=== PATIENT | female | born 1990 | race Caucasian/White ===

== ENCOUNTER 2022-05-04 04:00 | Inpatient (IN) | payer OTHER ==
[~2022-05-04] VITALS: Ht 157.5 cm; Wt 96.6 kg
[2022-05-04] MEDS ORDERED: TERBUTALINE SULFATE 1 MG/ML VIAL SUBCUT ONE (04:15)
[2022-05-04] MEDS ORDERED: NALBUPHINE HCL 10 MG/ML AMP IM PRN (04:15)
[2022-05-04] MEDS ORDERED: NALBUPHINE HCL 10 MG/ML AMP IVP PRN (04:15)
[2022-05-04] MEDS ORDERED: OXYTOCIN/0.9 % SODIUM CHLORIDE 1,000 ML IV SCH ×2 (04:15→23:15)
[2022-05-04 04:47] VITALS: BP_SYST 103
[2022-05-04] MEDS: LR 1,000 ML IV SCH ×3 (05:18→18:00)
[2022-05-04 06:55] LABS: BASOPHILS % (AUTO) 0.3 % (0.0-2.0); EOSINOPHILS # (AUTO) 0.1 K/uL (0.0-0.4); EOSINOPHILS % (AUTO) 1.7 % (0.0-4.0); HEMATOCRIT 33.1 % (36-48); HEMOGLOBIN 11.5 g/dL (12.0-16.0); LYMPHOCYTES % (AUTO) 26.2 % (20.5-51.5); MEAN CORPUSCULAR HEMOGLOBIN 30 pg (27-31); MEAN CORPUSCULAR HGB CONC 35 % (32-36); MEAN CORPUSCULAR VOLUME 87 fL (79.0-98.0); MONOCYTES # (AUTO) 0.6 K/uL (0.0-1.0); MONOCYTES % (AUTO) 8.4 % (1.7-9.3); NEUTROPHILS # (AUTO) 4.9 K/uL (1.8-7.7); NEUTROPHILS % (AUTO) 63.4 % (40.0-70.0); PLATELET COUNT (AUTO) 188 K/uL (130-430); RED BLOOD CELL COUNT(AUTO) 3.81 MIL/uL (4.2-6.2); WHITE BLOOD COUNT (AUTO) 7.8 K/uL (4.8-10.8)
[2022-05-04] MEDS ORDERED: fentaNYL CITRATE/PF 100 MCG/2 ML AMP ONE ×3 (13:39→22:01)
[2022-05-04] MEDS ORDERED: ROPIVACAINE HCL/PF 0.2% 200 ML ONE (13:40)
[2022-05-04] MEDS ORDERED: TEMAZEPAM 15 MG CAPSULE PO PRN (21:00)
[2022-05-04] MEDS ORDERED: LIDOCAINE PF 1% 30ML(POUR BTL) INJ ONE (22:52)
[2022-05-04] MEDS ORDERED: LIGHT MINERAL OIL 10 ML VIAL MC ONE (22:52)
[2022-05-04] MEDS ORDERED: NALOXONE HCL 0.4 MG/ML AMP (NARCAN) ONE (22:52)
[2022-05-04] MEDS ORDERED: HYDROcodone/ACETAMIN 5-325 MG TAB (NORCO/ VICODIN) PO PRN (23:15)
[2022-05-04] MEDS ORDERED: HYDROCORTISONE 0.5% CREAM 28.4 GM CREAM.GM. TP PRN (23:15)
[2022-05-04] MEDS ORDERED: DERMOPLAST SPRAY TP PRN (23:15)
[2022-05-04] MEDS ORDERED: ANUSOL 1 EA SUPP.RECT (PREPARATION H) RC PRN (23:15)
[2022-05-04] MEDS ORDERED: MEASLES,MUMPS&RUBELLA VACC/PF 12500 UNIT/0.5 ML VIAL SUBQ PRN (23:15)
[2022-05-04] MEDS ORDERED: WITCH HAZEL LEAF 1 MED.PAD MED.PAD TP PRN (23:15)
[2022-05-04] MEDS ORDERED: DIPHTH,PERTUSS(ACELL),TET VAC 0.5 ML VIAL (Tdap) I.M. PRN (23:15)
[2022-05-04] MEDS ORDERED: RHO(D) IMMUNE GLOBULIN/MALTOSE 1500 UNITS/1.3 ML (WINHRO) IM PRN (23:15)
[2022-05-04] MEDS ORDERED: LANOLIN 7 GM OINT. TP PRN (23:15)
[2022-05-04] MEDS ORDERED: NALOXONE HCL 0.4 MG/ML AMP (NARCAN) IVP PRN (23:15)
[2022-05-04] MEDS ORDERED: OXYTOCIN/0.9 % SODIUM CHLORIDE 1,000 ML IV ONE (23:15)
[2022-05-04] MEDS ORDERED: OXYCODONE/ACETAMINOPHEN 5-325 TABLET PO PRN ×2 (23:15)
[2022-05-04] MEDS ORDERED: METHYLERGONOVINE MALEATE 0.2 MG TABLET PO PRN (23:15)
[2022-05-05] MEDS: IBUPROFEN 600 MG TABLET PO SCH ×3 (05:53→18:22)
[2022-05-05 07:56] LABS: BASOPHILS % (AUTO) 0.1 % (0.0-2.0); EOSINOPHILS % (AUTO) 0.1 % (0.0-4.0); HEMATOCRIT 30.5 % (36-48); HEMOGLOBIN 10.5 g/dL (12.0-16.0); LYMPHOCYTES # (AUTO) 1.5 K/uL (1.0-5.5); LYMPHOCYTES % (AUTO) 10.9 % (20.5-51.5); MEAN CORPUSCULAR HEMOGLOBIN 30 pg (27-31); MEAN CORPUSCULAR HGB CONC 35 % (32-36); MEAN CORPUSCULAR VOLUME 87 fL (79.0-98.0); MONOCYTES % (AUTO) 7.2 % (1.7-9.3); NEUTROPHILS # (AUTO) 11.6 K/uL (1.8-7.7); NEUTROPHILS % (AUTO) 81.7 % (40.0-70.0); PLATELET COUNT (AUTO) 190 K/uL (130-430); WHITE BLOOD COUNT (AUTO) 14.1 K/uL (4.8-10.8)
[2022-05-05] MEDS: DOCUSATE SODIUM 100 MG CAPSULE PO SCH (08:28)
[2022-05-05] MEDS ORDERED: SENNOSIDES/DOCUSATE SODIUM 1 TAB TABLET(SENOKOT-S) PO SCH (21:00)
[2022-05-06] MEDS: IBUPROFEN 600 MG TABLET PO SCH ×3 (00:33→11:59)
[2022-05-06] MEDS: DOCUSATE SODIUM 100 MG CAPSULE PO SCH (08:55)
== END 2022-05-06 16:06 | disposition home or self-care (01) | DRG 807 ==
LOC: SPU 04:00
PROVIDERS: ADMIT Specialist; ATTEND Specialist
PROC: 10E0XZZ Delivery of Products of Conception, External Approach (ICD-10-PCS; principal; 2022-05-04)
PROC: 0HQ9XZZ Repair Perineum Skin, External Approach (ICD-10-PCS; 2022-05-04)
PROC: 3E0R3BZ Introduction of Anesthetic Agent into Spinal Canal, Percutaneous Approach (ICD-10-PCS; 2022-05-04)
PROC: 00HU33Z Insertion of Infusion Device into Spinal Canal, Percutaneous Approach (ICD-10-PCS; 2022-05-04)
PROC: 3E033VJ Introduction of Other Hormone into Peripheral Vein, Percutaneous Approach (ICD-10-PCS; 2022-05-04)
DX: O69.3XX0 Labor and delivery complicated by short cord, not applicable or unspecified (principal); Z37.0 Single live birth; Z20.822 Contact with and (suspected) exposure to COVID-19; O70.0 First degree perineal laceration during delivery; Z3A.39 39 weeks gestation of pregnancy
CPT/HCPCS: 36415; 81002; 85025; 86592; 86886; 86900; 86901; 87536; 94760; J2001; J2310; J2590; J3010